=== PATIENT | female | born 1930 | race Caucasian/White ===

== ENCOUNTER 2017-03-15 15:35 | Emergency (ER) | payer MEDICARE, OTHER ==
[~2017-03-15] VITALS: Ht 170.2 cm; Wt 70.0 kg
[~2017-03-15 15:35] MED LIST: ALPR.25 PO; COZA25TA PO; GABA100C4 PO; OXYB5TAB PO; RANI150 PO; ST JTAB PO; TRAM50TA PO
[2017-03-15 15:45] VITALS: BP 167/79; PULSE 74; RESP 18; RESP 20; TEMP 97.5; O2SAT 98
[2017-03-15] MEDS ORDERED: MECL-62 PO (15:59)
--- NOTE | 2017-03-15 15:59 | PD ---
HPI . Vertigo Chief Complaint: Dizziness Time Seen by Provider: 15:42 Travel History International Travel<30 days: No Contact w/Intl Traveler<30days: No Traveled to known affect area: No History of Present Illness HPI Patient presents with the acute onset of vertigo. He is treated en route by EMS with Zofran and states that she is better and ready to go home. She denies headache. She states that her vision is chronically poor. She initially states that she is no longer nauseous and like to have some water. 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 She states her last episode of vertigo was 3 days ago but was not as severe as today. She states that she had 3 episodes of emesis associated with the vertigo prior to her presentation. Symptoms were exacerbated by head movement and by bumps in the road and turns in the ambulance. Symptoms have been resolved with Zofran. PFSH Past Medical History Asthma: No Heart Rhythm Problems: No Cancer: No Cardiac Catheterization: No Cardiovascular Problems: Yes (HTN) High Cholesterol: No Chest Pain: No Congestive Heart Failure: No COPD: No Cerebrovascular Accident: Yes (MINI TIAs) Diabetes: No Diminished Hearing: No Endocrine: No Genitourinary: Yes (UTI) Hypertension: Yes Implanted Vascular Access Dvce: No Musculoskeletal: Yes Neurologic: Yes Psychiatric: No Reproductive: No Respiratory: No Integumentary: Yes (RECENT SHINGLES, RIGHT BREAST) Immunizations Current: No Migraines: No Myocardial Infarction: No Seizures: No Tetanus Vaccination: Unknown Influenza Vaccination: Yes ?: Not Past Surgical History Abdominal Surgery: Yes (APPY) Appendectomy: Yes Cardiac Surgery: No Coronary Artery Bypass Graft: No Eye Surgery: Yes (5 SURGERIES IN THE PAST, DETACHED RETINA & MACULAR DEGENERATION) Genitourinary Surgery: No Gynecologic Surgery: Yes (HYSTERECTOMY) Hysterectomy: Yes Neurologic Surgery: Yes (LOWER BACK SURGERIES ) Thoracic Surgery: No Other Surgery: Yes (RIGHT SIDE LUMPECTOMY) Family History Family Myocardial Infarction: Yes (brother mi age ) Social History Alcohol Use: No Tobacco Use: No Substance Use: No Allergies-Medications (Allergen,Severity, Reaction): Coded Allergies: Morphine (Verified Allergy, Severe, Anaphylaxis, 09/09/16) Rocephin (Verified Allergy, Intermediate, Flushing, Hypotensive, 09/09/16) Codeine (Verified Allergy, Mild, RXN= ANAPHYLAXIS, THROAT CLOSURE, 09/09/16 ) 12/21/06: PER PT,CODEINE RXN = ANAPHYLAXIS, THROAT CLOSURE Iodine (Verified Allergy, Mild, 09/09/16) Penicillin (Verified Allergy, Mild, 09/09/16) Sulfa (Verified Allergy, Mild, 09/09/16) Ceftriaxone (Verified Adverse Reaction, Severe, FLUSHING, HYPOTENSION, 09/09/16) Levaquin (Verified Adverse Reaction, Severe, tendonitis, 09/09/16) Reported Meds & Prescriptions Reported Meds & Active Scripts Active Meclizine (Meclizine HCl) 25 Mg Tab 25 Mg PO TID PRN Tramadol (Tramadol HCl) 50 Mg Tab 50 Mg PO BID PRN Cozaar (Losartan Potassium) 25 Mg Tab 25 Mg PO DAILY Reported Zantac (Ranitidine HCl) 150 Mg Tab 150 Mg PO BID Aspirin Adult Low Strength (Aspirin) 81 Mg Tabdr 81 Mg PO DAILY Ditropan (Oxybutynin Chloride) 5 Mg Tab 5 Mg PO BID PRN Review of Systems Except as stated in HPI: all other systems reviewed are Neg General / Constitutional: No: Fever, Chills Eyes: Positive: Other, No: Visual changes HENT: Positive: Vertigo, No: Headaches Cardiovascular: No: Chest Pain or Discomfort Respiratory: No: Shortness of Breath Gastrointestinal: Positive: Nausea, Vomiting, No: Abdominal Pain Physical Exam Narrative GENERAL: Patient presents with an emesis bag around her neck. She has fresh emesis in her hair. SKIN: Warm and dry. HEAD: Atraumatic. Normocephalic. EYES: Pupils equal and round. Extraocular movements were intact. ENT: No nasal bleeding or discharge. Mucous membranes pink and moist. NECK: Trachea midline. Neck supple. CARDIOVASCULAR: Regular rate and rhythm. Heart sounds normal. RESPIRATORY: No accessory muscle use. Lungs clear. GASTROINTESTINAL: Abdomen soft, non-tender, nondistended. MUSCULOSKELETAL: No obvious deformities. No edema. NEUROLOGICAL: Awake and alert. No obvious cranial nerve deficits. Motor grossly within normal limits. Normal speech. PSYCHIATRIC: Appropriate mood and affect; insight and judgment normal. Data Data Last Documented VS Vital Signs Date Time Temp Pulse Resp B/P Pulse Ox O2 Delivery O2 Flow Rate FiO2 03/15/17 15:57 Room Air 03/15/17 15:45 97.5 74 18 167/79 98 Orders Lorazepam Inj (Ativan Inj) (03/15/17 16:00) Prochlorperazine Inj (Compazine Inj) (03/15/17 16:00) Diphenhydramine Inj (Benadryl Inj) (03/15/17 16:00) Electrocardiogram (03/15/17 15:51) MDM Medical Decision Making Medical Screen Exam Complete: Yes Emergency Medical Condition: Yes Interpretation(s) EKG shows sinus rhythm with no acute ischemic change. Differential Diagnosis Differential diagnosis of dizziness includes but is not limited to vertigo, dehydration, acute blood loss, sepsis, ACS Narrative Course Patient presents by [facility] with vertigo. She states that she now feels fine and is ready to go home. However, she does have some residual nausea. I will give her a low dose of Compazine and Benadryl and observe her for a period of time. 4:55 PM Patient is asymptomatic. She will be discharged home. Diagnosis Primary Impression: Vertigo Patient Instructions: General Instructions, Vertigo (DC) Med/Other Pt SpecificInfo: Prescription(s) given Scripts Meclizine 25 Mg Tab25 Mg PO TID PRN (VERTIGO) #60 TAB Ref 0 Prov:Emma Ceja MD 03/15/17 Disposition: 01 DISCHARGE HOME Condition: Stable Emma Ceja MD March 15, 2017 15:59
[2017-03-15] MEDS ORDERED: diphenhydrAMINE HCL 50 MG/ML VIAL IV PUSH ONE (16:00)
[2017-03-15] MEDS ORDERED: PROCHLORPERAZINE INJ 10 MG/2 ML VIAL IV PUSH ONE (16:00)
[2017-03-15] MEDS ORDERED: LORazepam 2 MG/ML VIAL IV PUSH ONE (16:00)
[2017-03-15] MEDS ORDERED: ZANT150T2 PO (16:22)
[2017-03-15] MEDS ORDERED: ASPI1TAB91 PO (16:22)
[2017-03-15] MEDS ORDERED: OXYB5TAB10 PO (16:22)
[2017-03-15 17:25] VITALS: BP 167/73
--- NOTE | 2017-03-16 15:22 | EKG ---
Date Performed: 03/15/2017 Time Performed: 15:51:21 PTAGE: 86 years EKG: Sinus rhythm NONSPECIFIC ST CHANGES PRESENT NORMAL ECG PREVIOUS TRACING : 07/08/2011 14.48 Since previous tracing, no significant change noted DOCTOR: Hernando Duffy Interpretating Date/Time 03/16/2017 15:20:23
== END 2017-03-15 17:25 | disposition home or self-care (01) ==
LOC: NEPC 15:35
DX: R42 Dizziness and giddiness (principal); I10 Essential (primary) hypertension; Z86.73 Personal history of transient ischemic attack (TIA), and cerebral infarction without residual deficits
CPT/HCPCS: 93005; 96374; 96375; 99285; J0780; J1200

== ENCOUNTER 2018-11-03 19:00 | Observation (INO) ==
[2018-11-03] MEDS ORDERED: Sod Chloride 0.9% Inj 1,000 ML IV.SIG ONE (19:17)
--- NOTE | 2018-11-03 19:46 | XR ---
EXAM DATE: 11/03/2018 7:39 PM EST AGE/SEX: 88 years / Female INDICATIONS: Chest pain. CLINICAL DATA: This is the patient's initial encounter. Patient reports that signs and symptoms have been present for 3 days and indicates a pain score of 3/10. MEDICAL/SURGICAL HISTORY: . TIA. UTI. Hypertension. Shingles. . Hysterectomy. Lumpectomy. Natalie endectomy. COMPARISON: . FINDINGS: A single AP view of the chest demonstrates the lungs to be symmetrically aerated without evidence of mass, infiltrate or effusion. The cardiomediastinal contours are unremarkable. Osseous structures a re intact. CONCLUSION: No acute cardiopulmonary disease Electronically signed by: Felipe Plascencia MD Board Certified Radiologist 11/03/2018 7:45 PM EST
--- NOTE | 2018-11-03 19:49 | CT ---
EXAM DATE: 11/03/2018 7:43 PM EST AGE/SEX: 88 years / Female INDICATIONS: Syncope CLINICAL DATA: This is the patient's initial encounter. Patient reports that signs and symptoms have been present for 1 day and indicates a pain score of 5/10. MEDICAL/SURGICAL HISTORY: Hypertension. Transient ischemic attack. Appendectomy. Hysterectomy. RADIATION DOSE: 47.20 CTDI (mGy) COMPARISON: [facility], CT BRAIN W/O CONTRAST, 03/01/2015. . TECHNIQUE: CT of the head without contrast. Using automated exposure control and adjustment of the mA and/or kV according to patient size, radiation dose was kept as low as reasonably achievable to ob tain optimal diagnostic quality images. DICOM format image data is available electronically for revi ew and comparison. FINDINGS: Cerebrum: The ventricles are prominent consistent with atrophy. Minimal periventricular low density. No evidence of midline shift, mass lesion, hemorrhage or acute infarction. No extraaxial fluid col lections are seen. Posterior Fossa: The cerebellum and brainstem are intact. The 4th ventricle is midline. The cerebe llopontine angle is unremarkable. Skull: The calvaria is intact. No evidence of skull fracture. CONCLUSION: 1. Cerebral atrophy and chronic ischemic small vessel vasculopathy. 2. No acute intracranial abnormality. . Electronically signed by: Felipe Plascencia MD Board Certified Radiologist 11/03/2018 7:47 PM EST
--- NOTE | 2018-11-03 20:02 | CT ---
EXAM DATE: 11/03/2018 7:53 PM EST AGE/SEX: 88 years / Female INDICATIONS: Weakness right lower abdomen pain CLINICAL DATA: This is the patient's initial encounter. Patient reports that signs and symptoms have been present for 1 day and indicates a pain score of 5/10. MEDICAL/SURGICAL HISTORY: Transient ischemic attack. Hypertension. Hysterectomy. Appendectomy . RADIATION DOSE: 17.34 CTDI (mGy) COMPARISON: No prior exams available for comparison. TECHNIQUE: Multiple contiguous axial images were obtained through the abdomen. Images were obtained using multiple row detector helical technique. Using automated exposure control and adjustment of the mA and/or kV according to patient size, radiation dose was kept as low as reasonably achievable to o btain optimal diagnostic quality images. DICOM format image data is available electronically for rev iew and comparison. FINDINGS: Lower Lungs: The visualized lower lungs are clear. Liver: The liver has a homogeneous density without space-occupying lesion. There is no dilation of th e biliary tree. Spleen: Homogeneous density without enlargement. Pancreas: Indistinctness of the pancreatic head. Kidneys: Normal in size and shape. No evidence of mass or hydronephrosis. Adrenal Glands: Unremarkable. Aorta: Mild atherosclerotic changes without aneurysmal dilation. Bowel/Mesentery: Extensive diverticulosis of the descending and sigmoid colon.. Abdominal Wall: Intact. Retroperitoneum: No evidence of adenopathy in the retrocrural, para-aortic, or deep pelvic regions. Bladder: Contours are smooth. Reproductive Organs: Cystic lesion left adnexa measures 3.1 cm. Uterus is absent. Inguinal: The inguinal region is unremarkable without evidence of adenopathy. Bony Structures: Degenerative changes lumbar spine. Mild loss of height of L1. CONCLUSION: 1. Diverticulosis without diverticulitis. 2. Hysterectomy. 3. 3 cm cystic structure left adnexa likely ovarian in etiology. 4. Indistinctness of the pancreatic head of uncertain etiology but could be related to pancreatitis in the right clinical setting. Correlation with amylase/lipase levels recommended. Electronically signed by: Felipe Plascencia MD Board Certified Radiologist 11/03/2018 8:01 PM EST
[2018-11-03 20:05] LABS: Baso # (Auto) 0.1 th/mm3 (0.0-0.2); Baso % (Auto) 0.6 % (0.0-2.0); Eos # (Auto) 0.3 th/mm3 (0.0-0.4); Eos % (Auto) 2.5 % (0.0-4.0); Hematocrit 39.5 % (35.0-46.0); Hemoglobin 13.1 gm/dL (11.6-15.3); Lymph # (Auto) 1.4 th/mm3 (1.0-4.8); Lymph % (Auto) 12.6 % (9.0-44.0); Mean Corpuscular HGB Conc 33.2 % (32.0-36.0); Mean Corpuscular Hemoglobin 28.7 pg (27.0-34.0); Mean Corpuscular Volume 86.5 fL (80.0-100.0); Mean Platelet Volume 7.5 fL (7.0-11.0); Mono # (Auto) 0.9 th/mm3 (0.0-0.9); Mono % (Auto) 8.3 % (0.0-8.0); Neut # (Auto) 8.6 th/mm3 (1.8-7.7); Platelet Count 262 th/mm3 (150-450); Red Blood Count 4.57 mil/mm3 (4.00-5.30); Red Cell Distribution Width 13.1 % (11.6-17.2); White Blood Count 11.3 th/mm3 (4.0-11.0)
[2018-11-03 20:11] LABS: Alanine Aminotransferase 12 U/L (10-53); Anion Gap 7 meq/L (5-15); Aspartate Aminotransferase 16 U/L (15-37); Blood Urea Nitrogen 26 mg/dL (7-18); Calcium 8.3 mg/dL (8.5-10.1); Carbon Dioxide 26.2 meq/L (21.0-32.0); Chloride 107 meq/L (98-107); Glomerular Filtration Rate 29 mL/min (>89); Glucose,Random 118 mg/dL (74-106); Potassium 4.1 meq/L (3.5-5.1); Sodium 140 meq/L (136-145)
[2018-11-03 20:15] LABS: Alkaline Phosphatase 67 U/L (45-117); Total Protein 6.9 g/dL (6.4-8.2)
[2018-11-03 20:17] LABS: Prothrombin Time 10.1 sec (9.8-11.6)
[2018-11-03 20:22] LABS: Lipase 129 U/L (73-393)
[2018-11-03 20:31] LABS: Creatine Kinase 26 U/L (26-192)
[2018-11-03 21:07] LABS: Amorphous Sediment,Urine Rare /hpf; Bacteria,Urine Many /hpf; Bilirubin,Urine Negative (Negative); Clarity,Urine Hazy (Clear); Color,Urine Yellow (Yellw/Straw); Glucose,Urine (UA) Negative (Negative); Leukocyte Esterase,Urine Trace (Negative); Mucus,Urine Few /lpf (Occasional); Nitrite,Urine Positive (Negative); Squamous Epithelial Cell,Urine 4 /hpf (0-5)
--- NOTE | 2018-11-03 21:22 | ED ---
HPI General Chief complaint: Weakness Stated complaint: WEAKNESS Time Seen by Provider: 11/03/18 19:16 Source: patient and EMS Mode of arrival: EMS Limitations: no limitations History of Present Illness HPI Narrative: Patient is an 88-year-old female presented [facility] via [facility] for evaluation after near syncopal episode. Patient states she gets weak whenever she gets up to use the bedside commode. Per EMS report patient's son was there and states that patient nearly passed out. Patient projectile vomited. Initially fire rescue was called for citizens assist. When they arrived on scene patient was hypotensive. [facility] was then notified and transported patient to the hospital. Patient states that she is felt weak and more tired for the last 2 days however she reports that she has aortic stenosis and she is always weak and has no tolerance for any activity. She does report a decreased appetite. She currently lives at home with her son who is her caregiver. Initially patient presented not remembering events that happened immediately around the syncopal episode. She does present complaining of midsternal chest pain and heaviness. She reports that that started last night, it has been constant, she rates it a 7 out of 10 and its associated with nausea. Symptom onset was sudden, symptoms are moderate. Patient has no other complaints at this time. She does state that she did not want to come because she is tired of dealing with this. MD Complaint: Reports generalized weakness Onset (ago): unknown Duration: constant Location: Reports generalized Severity: moderate Relieving factors: none Exacerbating factors: none Context: Reports history of similar Associated symptoms: Reports loss of appetite, nausea/vomiting and syncope Related Data Home Medications Medication Instructions Recorded Confirmed aspirin [Aspir-81] 81 mg PO DAILY 11/03/18 11/03/18 gabapentin 400 mg PO TID 11/03/18 11/03/18 losartan 50 mg PO DAILY 11/03/18 11/03/18 Allergies Allergy/AdvReac Type Severity Reaction Status Date / Time morphine Allergy Severe Anaphylaxis Unverified 06/17/17 02:28 ceftriaxone Allergy Intermediate Flushing, Unverified 06/17/17 02:28 Hypotensive codeine Allergy Mild RXN= Unverified 06/17/17 02:28 ANAPHYLAXIS, THROAT CLOSURE iodine Allergy Mild Unverified 06/17/17 02:28 penicillin G Allergy Mild Unverified 06/17/17 02:28 potassium iodide Allergy Mild Unverified 06/17/17 02:28 povidone-iodine Allergy Mild Unverified 06/17/17 02:28 sodium iodide Allergy Mild Unverified 06/17/17 02:28 sodium iodide Allergy Mild Unverified 06/17/17 02:28 Sulfa (Sulfonamide Allergy Mild Unverified 06/17/17 02:28 Antibiotics) levofloxacin AdvReac Severe tendonitis Unverified 06/17/17 02:28 Review of Systems ROS: all other systems reviewed are negative [facility] Medical History Medical History H/O: hysterectomy (Acute) Hypertension (Acute) Shingles (Acute) TIA (transient ischemic attack) (Acute) UTI (urinary tract infection) (Acute) Surgical History Surgical History H/O lumpectomy (Acute) Hx of appendectomy (Acute) Social History Social History Substance History: No History of Abuse Second Hand Smoke Exposure: Yes Smoking Status: Never smoker How Often Do You Have a Drink Containing Alcohol: Never Recent Travel in [place] within the Last 8 Weeks: No Recent Out of Country Travel within the Last 8 Weeks: No Immunization History Tetanus Immunization: <5 Years Exam Narrative Exam Narrative: GENERAL: Overweight, well-developed, alert elderly female. Presenting in no acute distress. Patient was covered in vomit. SKIN: Focused skin assessment warm/dry. HEAD: Atraumatic. Normocephalic. EYES: Pupils equal and round. No scleral icterus. No injection or drainage. ENT: No nasal bleeding or discharge. Mucous membranes pink and moist. NECK: Trachea midline. No JVD. CARDIOVASCULAR: Regular rate and rhythm. Systolic murmur appreciated. RESPIRATORY: No accessory muscle use. Clear to auscultation. Breath sounds equal bilaterally. GASTROINTESTINAL: Abdomen soft, tender to palpation in right upper quadrant, nondistended. Hepatic and splenic margins not palpable. Positive bowel sounds, no rebound, no guarding. MUSCULOSKELETAL: No obvious deformities. No clubbing. No cyanosis. No edema. NEUROLOGICAL: Awake and alert. No obvious cranial nerve deficits. Motor grossly within normal limits. Normal speech. PSYCHIATRIC: Appropriate mood and affect; insight and judgment normal. Course Initial Documented Vital Signs Temperature 97.6 F 11/03/18 19:13 Pulse Rate 80 11/03/18 19:13 Respiratory Rate 18 11/03/18 19:13 Blood Pressure 167/66 H 11/03/18 19:13 Pulse Oximetry 96 11/03/18 19:13 Last Documented Vital Signs Temperature 97.6 F 11/03/18 19:13 Pulse Rate 90 11/03/18 22:10 Respiratory Rate 20 11/03/18 22:10 Blood Pressure 165/70 H 11/03/18 22:10 Pulse Oximetry 98 11/03/18 22:10 Medical Decision Making LORE Attestation LORE supervised visit: Yes Attestation: I, Dr. Spencer, have reviewed the advance practice practitioner's documentation and am in agreement, met with the patient face to face, made the diagnosis, and the medical decision making was done by me. See her note for further details. Briefly this is an 88-year-old female who was brought in by ambulance after a syncopal/near syncopal episode. She complains of generalized weakness. She has history of severe aortic stenosis and was advised to have this surgically repaired, however the patient has decided to not have this procedure. On exam she does have a harsh holosystolic murmur. Basic labs show slight renal insufficiency with a creatinine of 1.26. CT head and CT abdomen pelvis were performed and showed no acute abnormalities with several chronic abnormalities that were explained with the patient and the patient's family who are at the bedside. Patient does have a UTI. She is concerned about receiving antibiotics as she has several antibiotic allergies that have caused anaphylaxis in the past. She will be given nitrofurantoin as this is not on her list. Patient has severe generalized weakness, no focal deficits on exam, and I am concerned that this is likely secondary to her UTI as well as her severe . She is a high risk for falling, and will therefore be admitted to the hospital for further treatment and evaluation. MDM Narrative Medical decision making narrative: Patient presented via EMS for evaluation of a near syncopal episode. Patient was complaining of abdominal pain. Patient was downplaying her symptoms because she does not want to be here. Labs and imaging ordered and pending. Will obtain a CT scan of the brain and abdomen and pelvis. CBC with white blood cell count 11.3. Chemistry with a BUN and creatinine slightly elevated at 26/1.65 Urinalysis is consistent with a urinary tract infection. CT scan of the abdomen and pelvis shows diverticulosis without diverticulitis, a likely ovarian cyst, indistinct pancreatic head, patient's lipase is normal. CT scan of the brain shows no acute findings. Chest x-ray with no acute findings. Patient was also seen and evaluated by my attending physician. Pt will be started on Macrobid BID, first dose now. She will be admitted for syncope, UTI, weakness secondary to significant aortic stenosis. Pt and family agreeable to palliative/hospice consult. Admit orders placed after discussing with Dr. Maravilla who accepted admit. Medical Screen Exam Complete: Yes Emergency Medical Condition: Yes Differential Diagnosis Differential Diagnosis: Metabolic abnormality versus cardiac arrhythmia versus UTI versus vasovagal episode versus other Medical Records Medical records reviewed: Yes I reviewed the patient's medical records. Lab Data Lab results reviewed: Yes I reviewed the patient's lab results. Result diagrams: 11/03/18 19:27 11/03/18 19:27 Lab Results 11/03/18 11/03/18 11/03/18 Range/Units 19:27 19:27 19:27 WBC 11.3 H (4.0-11.0) th/mm3 RBC 4.57 (4.00-5.30) mil/mm3 Hgb 13.1 (11.6-15.3) gm/dL Hct 39.5 (35.0-46.0) % MCV 86.5 (80.0-100.0) fL MCH 28.7 (27.0-34.0) pg MCHC 33.2 (32.0-36.0) % RDW 13.1 (11.6-17.2) % Plt Count 262 (150-450) th/mm3 MPV 7.5 (7.0-11.0) fL Neut % (Auto) 76.0 H (16.0-70.0) % Lymph % (Auto) 12.6 (9.0-44.0) % [place] % (Auto) 8.3 H (0.0-8.0) % Eos % (Auto) 2.5 (0.0-4.0) % Baso % (Auto) 0.6 (0.0-2.0) % Neut # (Auto) 8.6 H (1.8-7.7) th/mm3 Lymph # (Auto) 1.4 (1.0-4.8) th/mm3 [place] # (Auto) 0.9 (0.0-0.9) th/mm3 Eos # (Auto) 0.3 (0.0-0.4) th/mm3 Baso # (Auto) 0.1 (0.0-0.2) th/mm3 WBC Differential . Differential Comment Auto diff final PT 10.1 (9.8-11.6) sec INR 1.0 Ratio Sodium 140 (136-145) meq/L Potassium 4.1 (3.5-5.1) meq/L Chloride 107 (98-107) meq/L Carbon Dioxide 26.2 (21.0-32.0) meq/L Anion Gap 7 (5-15) meq/L BUN 26 H (7-18) mg/dL Creatinine 1.65 H (0.50-1.00) mg/dL Estimated GFR 29 L (>89) mL/min Random Glucose 118 H (74-106) mg/dL Lactic Acid (0.4-2.0) mmol/L Calcium 8.3 L (8.5-10.1) mg/dL Magnesium 2.0 (1.5-2.5) mg/dL Total Bilirubin 0.3 (0.2-1.0) mg/dL AST 16 (15-37) U/L ALT 12 (10-53) U/L Alkaline Phosphatase 67 (45-117) U/L Total Creatine Kinase 26 (26-192) U/L Troponin I Less than 0.02 L (0.02-0.05) ng/mL B-Natriuretic Peptide (0-100) pg/mL Total Protein 6.9 (6.4-8.2) g/dL Albumin 3.0 L (3.4-5.0) g/dL Lipase 129 (73-393) U/L Urine Color (Yellw/Straw) Urine Clarity (Clear) Urine pH (5.0-8.5) Ur Specific [place] (1.002-1.035) Urine Protein (Neg-Trace) mg/dL Urine Glucose (UA) (Negative) mg/dL Urine Ketones (Negative) mg/dL Urine Occult Blood (Negative) Urine Nitrate (Negative) Urine Bilirubin (Negative) Urine Urobilinogen (Less than 2) mg/dL Ur Leukocyte Esterase (Negative) Urine RBC (0-3) /hpf Urine WBC (0-5) /hpf Ur Squamous Epith Cells (0-5) /hpf Amorphous Sediment (None) /hpf Urine Bacteria (None) /hpf Urine Mucus (Occasional) /lpf Micro UA Comment Ur Microscopic Review Urine Culture Comments 11/03/18 11/03/18 11/03/18 Range/Units 19:27 19:27 19:27 WBC (4.0-11.0) th/mm3 RBC (4.00-5.30) mil/mm3 Hgb (11.6-15.3) gm/dL Hct (35.0-46.0) % MCV (80.0-100.0) fL MCH (27.0-34.0) pg MCHC (32.0-36.0) % RDW (11.6-17.2) % Plt Count (150-450) th/mm3 MPV (7.0-11.0) fL Neut % (Auto) (16.0-70.0) % Lymph % (Auto) (9.0-44.0) % [place] % (Auto) (0.0-8.0) % Eos % (Auto) (0.0-4.0) % Baso % (Auto) (0.0-2.0) % Neut # (Auto) (1.8-7.7) th/mm3 Lymph # (Auto) (1.0-4.8) th/mm3 [place] # (Auto) (0.0-0.9) th/mm3 Eos # (Auto) (0.0-0.4) th/mm3 Baso # (Auto) (0.0-0.2) th/mm3 WBC Differential Differential Comment PT (9.8-11.6) sec INR Ratio Sodium (136-145) meq/L Potassium (3.5-5.1) meq/L Chloride (98-107) meq/L Carbon Dioxide (21.0-32.0) meq/L Anion Gap (5-15) meq/L BUN (7-18) mg/dL Creatinine (0.50-1.00) mg/dL Estimated GFR (>89) mL/min Random Glucose (74-106) mg/dL Lactic Acid 1.2 (0.4-2.0) mmol/L Calcium (8.5-10.1) mg/dL Magnesium (1.5-2.5) mg/dL Total Bilirubin (0.2-1.0) mg/dL AST (15-37) U/L ALT (10-53) U/L Alkaline Phosphatase (45-117) U/L Total Creatine Kinase (26-192) U/L Troponin I (0.02-0.05) ng/mL B-Natriuretic Peptide 21 (0-100) pg/mL Total Protein (6.4-8.2) g/dL Albumin (3.4-5.0) g/dL Lipase Cancelled (73-393) U/L Urine Color (Yellw/Straw) Urine Clarity (Clear) Urine pH (5.0-8.5) Ur Specific [place] (1.002-1.035) Urine Protein (Neg-Trace) mg/dL Urine Glucose (UA) (Negative) mg/dL Urine Ketones (Negative) mg/dL Urine Occult Blood (Negative) Urine Nitrate (Negative) Urine Bilirubin (Negative) Urine Urobilinogen (Less than 2) mg/dL Ur Leukocyte Esterase (Negative) Urine RBC (0-3) /hpf Urine WBC (0-5) /hpf Ur Squamous Epith Cells (0-5) /hpf Amorphous Sediment (None) /hpf Urine Bacteria (None) /hpf Urine Mucus (Occasional) /lpf Micro UA Comment Ur Microscopic Review Urine Culture Comments 11/03/18 Range/Units 20:45 WBC (4.0-11.0) th/mm3 RBC (4.00-5.30) mil/mm3 Hgb (11.6-15.3) gm/dL Hct (35.0-46.0) % MCV (80.0-100.0) fL MCH (27.0-34.0) pg MCHC (32.0-36.0) % RDW (11.6-17.2) % Plt Count (150-450) th/mm3 MPV (7.0-11.0) fL Neut % (Auto) (16.0-70.0) % Lymph % (Auto) (9.0-44.0) % [place] % (Auto) (0.0-8.0) % Eos % (Auto) (0.0-4.0) % Baso % (Auto) (0.0-2.0) % Neut # (Auto) (1.8-7.7) th/mm3 Lymph # (Auto) (1.0-4.8) th/mm3 [place] # (Auto) (0.0-0.9) th/mm3 Eos # (Auto) (0.0-0.4) th/mm3 Baso # (Auto) (0.0-0.2) th/mm3 WBC Differential Differential Comment PT (9.8-11.6) sec INR Ratio Sodium (136-145) meq/L Potassium (3.5-5.1) meq/L Chloride (98-107) meq/L Carbon Dioxide (21.0-32.0) meq/L Anion Gap (5-15) meq/L BUN (7-18) mg/dL Creatinine (0.50-1.00) mg/dL Estimated GFR (>89) mL/min Random Glucose (74-106) mg/dL Lactic Acid (0.4-2.0) mmol/L Calcium (8.5-10.1) mg/dL Magnesium (1.5-2.5) mg/dL Total Bilirubin (0.2-1.0) mg/dL AST (15-37) U/L ALT (10-53) U/L Alkaline Phosphatase (45-117) U/L Total Creatine Kinase (26-192) U/L Troponin I (0.02-0.05) ng/mL B-Natriuretic Peptide (0-100) pg/mL Total Protein (6.4-8.2) g/dL Albumin (3.4-5.0) g/dL Lipase (73-393) U/L Urine Color Yellow (Yellw/Straw) Urine Clarity Hazy H (Clear) Urine pH 6.0 (5.0-8.5) Ur Specific [place] 1.010 (1.002-1.035) Urine Protein Negative (Neg-Trace) mg/dL Urine Glucose (UA) Negative (Negative) mg/dL Urine Ketones Trace H (Negative) mg/dL Urine Occult Blood Small H (Negative) Urine Nitrate Positive H (Negative) Urine Bilirubin Negative (Negative) Urine Urobilinogen Less than 2 (Less than 2) mg/dL Ur Leukocyte Esterase Trace H (Negative) Urine RBC 1 (0-3) /hpf Urine WBC 5 (0-5) /hpf Ur Squamous Epith Cells 4 (0-5) /hpf Amorphous Sediment Rare H (None) /hpf Urine Bacteria Many H (None) /hpf Urine Mucus Few H (Occasional) /lpf Micro UA Comment Cath-culture ind Ur Microscopic Review Not Reportable Urine Culture Comments Cath-cult indicated Imaging Data Radiologist's impression: Chest X-Ray 11/03/18 19:17 CONCLUSION: No acute cardiopulmonary disease Head CT 11/03/18 19:17 CONCLUSION: 1. Cerebral atrophy and chronic ischemic small vessel vasculopathy. 2. No acute intracranial abnormality. . Abdomen/Pelvis CT 11/03/18 19:20 CONCLUSION: 1. Diverticulosis without diverticulitis. 2. Hysterectomy. 3. 3 cm cystic structure left adnexa likely ovarian in etiology. 4. Indistinctness of the pancreatic head of uncertain etiology but could be related to pancreatitis in the right clinical setting. Correlation with amylase/ lipase levels recommended. Discharge Plan Discharge Disposition Patient Disposition: ED Admit(ED Internal Use Only) Discharge Condition Condition: Stable Discharge Order Discharge Orders: ED Use Only Admit Order (Routine); Ordered 11/03/18 Ordered By: Fani Hyatt Discharge Details Diagnosis: Aortic stenosis, Acute UTI, Weakness, Syncope Physicians Team ED Provider: All Spencer ED Midlevel Provider: Fani Hyatt Primary Care Provider: Mauricio Leung Attending Provider: Delmi Maravilla Status ED Status: Admitted Observation Patient
[2018-11-03] MEDS ORDERED: Nitrofurantoin Monohydrate-Macrocrystal 100 MG Capsule PO ONE (21:37)
[2018-11-03] MEDS ORDERED: Enoxaparin Inj 40 MG/0.4 ML Syringe SQ SCH (22:40)
[2018-11-04 05:51] LABS: Baso % (Auto) 0.3 % (0.0-2.0); Eos # (Auto) 0.1 th/mm3 (0.0-0.4); Eos % (Auto) 1.5 % (0.0-4.0); Hemoglobin 12.4 gm/dL (11.6-15.3); Lymph # (Auto) 1.4 th/mm3 (1.0-4.8); Lymph % (Auto) 14.3 % (9.0-44.0); Mean Corpuscular HGB Conc 33.6 % (32.0-36.0); Mean Corpuscular Hemoglobin 29.2 pg (27.0-34.0); Mean Corpuscular Volume 87.1 fL (80.0-100.0); Mean Platelet Volume 7.5 fL (7.0-11.0); Mono % (Auto) 10.7 % (0.0-8.0); Neut % (Auto) 73.2 % (16.0-70.0); Platelet Count 246 th/mm3 (150-450); Red Blood Count 4.25 mil/mm3 (4.00-5.30); Red Cell Distribution Width 12.8 % (11.6-17.2); White Blood Count 9.6 th/mm3 (4.0-11.0)
[2018-11-04 06:14] LABS: Calcium 8.2 mg/dL (8.5-10.1); Carbon Dioxide 23.4 meq/L (21.0-32.0); Potassium 4.3 meq/L (3.5-5.1)
--- NOTE | 2018-11-04 07:31 | ED ---
HPI General Chief complaint: Weakness Stated complaint: WEAKNESS Time Seen by Provider: 11/03/18 19:16 Source: patient and EMS Mode of arrival: EMS History of Present Illness HPI narrative: History from patient, ER physician communication, and review of medical records. Patient reported that today she got up from her bed to the wheelchair and went to her bedside commode. While she was doing that, she got quite dizzy, weak and passed out. She therefore called for her son. She states that these episodes happen to her quite often and usually she would just lie down after this and about 20 minutes later the episodes would go away. However this time her family got quite scared and called 911. She states she really does not want to come to hospital but the family pushed her. Patient reports she has history of aortic stenosis. However she has never seen a cardiothoracic surgeon for evaluation. She reports she was seeing a automation/controls manager up until a year ago. Her automation/controls manager thought that she is high risk for surgery. Patient herself is also scared that she might be put to sleep for the procedure and she might react badly to the medications because she has allergies to several medications. She is also under the impression that the surgery is more of an open heart surgery rather than minimally invasive. She reports of increasing cough and shortness of breath in the past year. She states that her murmur is so loud that she herself could hear it. She states together with his shortness of breath she also gets chest heaviness and tightness. However she states she knows that this is not a heart attack because there was no radiation. She states this is coming from her valve problem. Patient states she also had projectile vomiting whenever she gets dizzy and almost passed out. Apart from the above, patient also complains of flank pain on the right side for the past 3 weeks. She was worried to mention this because she did not want to check out whether she has kidney stones or not. Patient is on losartan 25 mg p.o. daily. She states that her blood pressure is usually low whenever she sits up. Therefore even though her automation/controls manager prescribed her losartan 50 mg, she took only half the dose. Apart from the above, patient denies any fevers/diarrhea/urinary burning or pain on urination. Reports that she is incontinent with urine and for the past 1 year she is mostly wheelchair-bound. She usually was able to walk and independent of ADLs about a year ago. She states because of this heart valve issue, she just cannot get up and do anything or else she will get these episodes of dizziness, syncope, for projectile vomiting. Patient is also worried that she might have early stages of decubiti because she is having pain in her buttocks. She is worried because she has been in bed mostly. Review of system: Complete review of systems performed and is negative apart from what is mentioned in HPI Past medical history: Macular degeneration Retinal detachment Right eye blindness Severe aortic stenosis History of TIA History of hypertension. However possible she also has orthostatic hypotension from history. 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 No drinking alcohol or drug abuse. 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 Family history: Her father had tuberculosis. Mother had breast cancer. Mother also had some heart issues and had a pacemaker. But she at 92 years old. Related Data Home Medications Medication Instructions Recorded Confirmed aspirin [Aspir-81] 81 mg PO DAILY 11/03/18 11/03/18 gabapentin 400 mg PO TID 11/03/18 11/03/18 losartan 50 mg PO DAILY 11/03/18 11/03/18 Allergies Allergy/AdvReac Type Severity Reaction Status Date / Time morphine Allergy Severe Anaphylaxis Unverified 06/17/17 02:28 ceftriaxone Allergy Intermediate Flushing, Unverified 06/17/17 02:28 Hypotensive codeine Allergy Mild RXN= Unverified 06/17/17 02:28 ANAPHYLAXIS, THROAT CLOSURE iodine Allergy Mild Unverified 06/17/17 02:28 penicillin G Allergy Mild Unverified 06/17/17 02:28 potassium iodide Allergy Mild Unverified 06/17/17 02:28 povidone-iodine Allergy Mild Unverified 06/17/17 02:28 sodium iodide Allergy Mild Unverified 06/17/17 02:28 sodium iodide Allergy Mild Unverified 06/17/17 02:28 Sulfa (Sulfonamide Allergy Mild Unverified 06/17/17 02:28 Antibiotics) levofloxacin AdvReac Severe tendonitis Unverified 06/17/17 02:28 [facility] Medical History Medical History H/O: hysterectomy (Acute) Hypertension (Acute) Shingles (Acute) TIA (transient ischemic attack) (Acute) UTI (urinary tract infection) (Acute) Surgical History Surgical History H/O lumpectomy (Acute) Hx of appendectomy (Acute) Social History Social History Substance History: No History of Abuse Second Hand Smoke Exposure: No Smoking Status: Never smoker How Often Do You Have a Drink Containing Alcohol: Never Recent Travel in [facility] within the Last 8 Weeks: No Recent Out of Country Travel within the Last 8 Weeks: No Immunization History Tetanus Immunization: <5 Years Course Initial Documented Vital Signs Temperature 97.6 F 11/03/18 19:13 Pulse Rate 80 11/03/18 19:13 Respiratory Rate 18 11/03/18 19:13 Blood Pressure 167/66 H 11/03/18 19:13 Pulse Oximetry 96 11/03/18 19:13 Last Documented Vital Signs Temperature 97.9 F 11/04/18 04:00 Pulse Rate 82 11/04/18 04:00 Respiratory Rate 16 11/04/18 04:00 Blood Pressure 182/78 H 11/04/18 04:00 Pulse Oximetry 97 11/04/18 04:00 Medical Decision Making Lab Data Result diagrams: 11/04/18 04:29 11/04/18 04:29 Lab Results 11/03/18 11/03/18 11/03/18 Range/Units 19:27 19:27 19:27 WBC 11.3 H (4.0-11.0) th/mm3 RBC 4.57 (4.00-5.30) mil/mm3 Hgb 13.1 (11.6-15.3) gm/dL Hct 39.5 (35.0-46.0) % MCV 86.5 (80.0-100.0) fL MCH 28.7 (27.0-34.0) pg MCHC 33.2 (32.0-36.0) % RDW 13.1 (11.6-17.2) % Plt Count 262 (150-450) th/mm3 MPV 7.5 (7.0-11.0) fL Neut % (Auto) 76.0 H (16.0-70.0) % Lymph % (Auto) 12.6 (9.0-44.0) % Harris % (Auto) 8.3 H (0.0-8.0) % Eos % (Auto) 2.5 (0.0-4.0) % Baso % (Auto) 0.6 (0.0-2.0) % Neut # (Auto) 8.6 H (1.8-7.7) th/mm3 Lymph # (Auto) 1.4 (1.0-4.8) th/mm3 Harris # (Auto) 0.9 (0.0-0.9) th/mm3 Eos # (Auto) 0.3 (0.0-0.4) th/mm3 Baso # (Auto) 0.1 (0.0-0.2) th/mm3 WBC Differential . Differential Comment Auto diff final PT 10.1 (9.8-11.6) sec INR 1.0 Ratio Sodium 140 (136-145) meq/L Potassium 4.1 (3.5-5.1) meq/L Chloride 107 (98-107) meq/L Carbon Dioxide 26.2 (21.0-32.0) meq/L Anion Gap 7 (5-15) meq/L BUN 26 H (7-18) mg/dL Creatinine 1.65 H (0.50-1.00) mg/dL Estimated GFR 29 L (>89) mL/min Random Glucose 118 H (74-106) mg/dL Lactic Acid (0.4-2.0) mmol/L Calcium 8.3 L (8.5-10.1) mg/dL Magnesium 2.0 (1.5-2.5) mg/dL Total Bilirubin 0.3 (0.2-1.0) mg/dL AST 16 (15-37) U/L ALT 12 (10-53) U/L Alkaline Phosphatase 67 (45-117) U/L Total Creatine Kinase 26 (26-192) U/L Troponin I Less than 0.02 L (0.02-0.05) ng/mL B-Natriuretic Peptide (0-100) pg/mL Total Protein 6.9 (6.4-8.2) g/dL Albumin 3.0 L (3.4-5.0) g/dL Lipase 129 (73-393) U/L Urine Color (Yellw/Straw) Urine Clarity (Clear) Urine pH (5.0-8.5) Ur Specific Jasper (1.002-1.035) Urine Protein (Neg-Trace) mg/dL Urine Glucose (UA) (Negative) mg/dL Urine Ketones (Negative) mg/dL Urine Occult Blood (Negative) Urine Nitrate (Negative) Urine Bilirubin (Negative) Urine Urobilinogen (Less than 2) mg/dL Ur Leukocyte Esterase (Negative) Urine RBC (0-3) /hpf Urine WBC (0-5) /hpf Ur Squamous Epith Cells (0-5) /hpf Amorphous Sediment (None) /hpf Urine Bacteria (None) /hpf Urine Mucus (Occasional) /lpf Micro UA Comment Ur Microscopic Review Urine Culture Comments 11/03/18 11/03/18 11/03/18 Range/Units 19:27 19:27 19:27 WBC (4.0-11.0) th/mm3 RBC (4.00-5.30) mil/mm3 Hgb (11.6-15.3) gm/dL Hct (35.0-46.0) % MCV (80.0-100.0) fL MCH (27.0-34.0) pg MCHC (32.0-36.0) % RDW (11.6-17.2) % Plt Count (150-450) th/mm3 MPV (7.0-11.0) fL Neut % (Auto) (16.0-70.0) % Lymph % (Auto) (9.0-44.0) % Harris % (Auto) (0.0-8.0) % Eos % (Auto) (0.0-4.0) % Baso % (Auto) (0.0-2.0) % Neut # (Auto) (1.8-7.7) th/mm3 Lymph # (Auto) (1.0-4.8) th/mm3 Harris # (Auto) (0.0-0.9) th/mm3 Eos # (Auto) (0.0-0.4) th/mm3 Baso # (Auto) (0.0-0.2) th/mm3 WBC Differential Differential Comment PT (9.8-11.6) sec INR Ratio Sodium (136-145) meq/L Potassium (3.5-5.1) meq/L Chloride (98-107) meq/L Carbon Dioxide (21.0-32.0) meq/L Anion Gap (5-15) meq/L BUN (7-18) mg/dL Creatinine (0.50-1.00) mg/dL Estimated GFR (>89) mL/min Random Glucose (74-106) mg/dL Lactic Acid 1.2 (0.4-2.0) mmol/L Calcium (8.5-10.1) mg/dL Magnesium (1.5-2.5) mg/dL Total Bilirubin (0.2-1.0) mg/dL AST (15-37) U/L ALT (10-53) U/L Alkaline Phosphatase (45-117) U/L Total Creatine Kinase (26-192) U/L Troponin I (0.02-0.05) ng/mL B-Natriuretic Peptide 21 (0-100) pg/mL Total Protein (6.4-8.2) g/dL Albumin (3.4-5.0) g/dL Lipase Cancelled (73-393) U/L Urine Color (Yellw/Straw) Urine Clarity (Clear) Urine pH (5.0-8.5) Ur Specific Jasper (1.002-1.035) Urine Protein (Neg-Trace) mg/dL Urine Glucose (UA) (Negative) mg/dL Urine Ketones (Negative) mg/dL Urine Occult Blood (Negative) Urine Nitrate (Negative) Urine Bilirubin (Negative) Urine Urobilinogen (Less than 2) mg/dL Ur Leukocyte Esterase (Negative) Urine RBC (0-3) /hpf Urine WBC (0-5) /hpf Ur Squamous Epith Cells (0-5) /hpf Amorphous Sediment (None) /hpf Urine Bacteria (None) /hpf Urine Mucus (Occasional) /lpf Micro UA Comment Ur Microscopic Review Urine Culture Comments 11/03/18 11/04/18 11/04/18 Range/Units 20:45 04:29 04:29 WBC 9.6 (4.0-11.0) th/mm3 RBC 4.25 (4.00-5.30) mil/mm3 Hgb 12.4 (11.6-15.3) gm/dL Hct 37.0 (35.0-46.0) % MCV 87.1 (80.0-100.0) fL MCH 29.2 (27.0-34.0) pg MCHC 33.6 (32.0-36.0) % RDW 12.8 (11.6-17.2) % Plt Count 246 (150-450) th/mm3 MPV 7.5 (7.0-11.0) fL Neut % (Auto) 73.2 H (16.0-70.0) % Lymph % (Auto) 14.3 (9.0-44.0) % Harris % (Auto) 10.7 H (0.0-8.0) % Eos % (Auto) 1.5 (0.0-4.0) % Baso % (Auto) 0.3 (0.0-2.0) % Neut # (Auto) 7.0 (1.8-7.7) th/mm3 Lymph # (Auto) 1.4 (1.0-4.8) th/mm3 Harris # (Auto) 1.0 H (0.0-0.9) th/mm3 Eos # (Auto) 0.1 (0.0-0.4) th/mm3 Baso # (Auto) 0.0 (0.0-0.2) th/mm3 WBC Differential . Differential Comment Auto diff final PT (9.8-11.6) sec INR Ratio Sodium 140 (136-145) meq/L Potassium 4.3 (3.5-5.1) meq/L Chloride 107 (98-107) meq/L Carbon Dioxide 23.4 (21.0-32.0) meq/L Anion Gap 10 (5-15) meq/L BUN 25 H (7-18) mg/dL Creatinine 1.63 H (0.50-1.00) mg/dL Estimated GFR 30 L (>89) mL/min Random Glucose 98 (74-106) mg/dL Lactic Acid (0.4-2.0) mmol/L Calcium 8.2 L (8.5-10.1) mg/dL Magnesium (1.5-2.5) mg/dL Total Bilirubin (0.2-1.0) mg/dL AST (15-37) U/L ALT (10-53) U/L Alkaline Phosphatase (45-117) U/L Total Creatine Kinase (26-192) U/L Troponin I (0.02-0.05) ng/mL B-Natriuretic Peptide (0-100) pg/mL Total Protein (6.4-8.2) g/dL Albumin (3.4-5.0) g/dL Lipase (73-393) U/L Urine Color Yellow (Yellw/Straw) Urine Clarity Hazy H (Clear) Urine pH 6.0 (5.0-8.5) Ur Specific Jasper 1.010 (1.002-1.035) Urine Protein Negative (Neg-Trace) mg/dL Urine Glucose (UA) Negative (Negative) mg/dL Urine Ketones Trace H (Negative) mg/dL Urine Occult Blood Small H (Negative) Urine Nitrate Positive H (Negative) Urine Bilirubin Negative (Negative) Urine Urobilinogen Less than 2 (Less than 2) mg/dL Ur Leukocyte Esterase Trace H (Negative) Urine RBC 1 (0-3) /hpf Urine WBC 5 (0-5) /hpf Ur Squamous Epith Cells 4 (0-5) /hpf Amorphous Sediment Rare H (None) /hpf Urine Bacteria Many H (None) /hpf Urine Mucus Few H (Occasional) /lpf Micro UA Comment Cath-culture ind Ur Microscopic Review Not Reportable Urine Culture Comments Cath-cult indicated Imaging Data Radiologist's impression: Chest X-Ray 11/03/18 19:17 CONCLUSION: No acute cardiopulmonary disease Head CT 11/03/18 19:17 CONCLUSION: 1. Cerebral atrophy and chronic ischemic small vessel vasculopathy. 2. No acute intracranial abnormality. . Abdomen/Pelvis CT 11/03/18 19:20 CONCLUSION: 1. Diverticulosis without diverticulitis. 2. Hysterectomy. 3. 3 cm cystic structure left adnexa likely ovarian in etiology. 4. Indistinctness of the pancreatic head of uncertain etiology but could be related to pancreatitis in the right clinical setting. Correlation with amylase/ lipase levels recommended. Discharge Plan Discharge Disposition Patient Disposition: ED Admit(ED Internal Use Only) Discharge Condition Condition: Stable Discharge Order Discharge Orders: ED Use Only Admit Order (Routine); Ordered 11/03/18 Ordered By: Fani Hyatt Discharge Details Diagnosis: Aortic stenosis, Acute UTI, Weakness, Syncope Physicians Team ED Provider: [facility] Midlevel Provider: Fani Hyatt Primary Care Provider: Mauricio Leung Attending Provider: Kelli Burch Other Providers: Bonny Miner Status ED Status: Left Department Discharge Information Discharge Date/Time: 11/04/18 01:19
--- NOTE | 2018-11-04 07:33 | P.HPIM ---
History of Present Illness Primary Care Physician: History from patient, ER physician communication, and review of medical records. Patient reported that today she got up from her bed to the wheelchair and went to her bedside commode. While she was doing that, she got quite dizzy, weak and passed out. She therefore called for her son. She states that these episodes happen to her quite often and usually she would just lie down after this and about 20 minutes later the episodes would go away. However this time her family got quite scared and called 911. She states she really does not want to come to hospital but the family pushed her. Patient reports she has history of aortic stenosis. However she has never seen a cardiothoracic surgeon for evaluation. She reports she was seeing a warhead maintenance specialist up until a year ago. Her warhead maintenance specialist thought that she is high risk for surgery. Patient herself is also scared that she might be put to sleep for the procedure and she might react badly to the medications because she has allergies to several medications. She is also under the impression that the surgery is more of an open heart surgery rather than minimally invasive. She reports of increasing cough and shortness of breath in the past year. She states that her murmur is so loud that she herself could hear it. She states together with his shortness of breath she also gets chest heaviness and tightness. However she states she knows that this is not a heart attack because there was no radiation. She states this is coming from her valve problem. Patient states she also had projectile vomiting whenever she gets dizzy and almost passed out. Apart from the above, patient also complains of flank pain on the right side for the past 3 weeks. She was worried to mention this because she did not want to check out whether she has kidney stones or not. Patient is on losartan 25 mg p.o. daily. She states that her blood pressure is usually low whenever she sits up. Therefore even though her warhead maintenance specialist prescribed her losartan 50 mg, she took only half the dose. Apart from the above, patient denies any fevers/diarrhea/urinary burning or pain on urination. Reports that she is incontinent with urine and for the past 1 year she is mostly wheelchair-bound. She usually was able to walk and independent of ADLs about a year ago. She states because of this heart valve issue, she just cannot get up and do anything or else she will get these episodes of dizziness, syncope, for projectile vomiting. Patient is also worried that she might have early stages of decubiti because she is having pain in her buttocks. She is worried because she has been in bed mostly. Review of system: Complete review of systems performed and is negative apart from what is mentioned in HPI Past medical history: Macular degeneration Retinal detachment Right eye blindness Severe aortic stenosis History of TIA History of hypertension. However possible she also has orthostatic hypotension from history. 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 No drinking alcohol or drug abuse. 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 Family history: Her father had tuberculosis. Mother had breast cancer. Mother also had some heart issues and had a pacemaker. But she at 92 years old. Review of Systems Review of Systems: all other systems reviewed are negative [facility] Medical History Medical History H/O: hysterectomy (Acute) Hypertension (Acute) Shingles (Acute) TIA (transient ischemic attack) (Acute) UTI (urinary tract infection) (Acute) Surgical History Surgical History H/O lumpectomy (Acute) Hx of appendectomy (Acute) Social History Social History Substance History: No History of Abuse Second Hand Smoke Exposure: No Smoking Status: Never smoker How Often Do You Have a Drink Containing Alcohol: Never Recent Travel in [facility] within the Last 8 Weeks: No Recent Out of Country Travel within the Last 8 Weeks: No Immunization History Tetanus Immunization: <5 Years Medications and Allergies Allergies Allergy/AdvReac Type Severity Reaction Status Date / Time morphine Allergy Severe Anaphylaxis Unverified 06/17/17 02:28 ceftriaxone Allergy Intermediate Flushing, Unverified 06/17/17 02:28 Hypotensive codeine Allergy Mild RXN= Unverified 06/17/17 02:28 ANAPHYLAXIS, THROAT CLOSURE iodine Allergy Mild Unverified 06/17/17 02:28 penicillin G Allergy Mild Unverified 06/17/17 02:28 potassium iodide Allergy Mild Unverified 06/17/17 02:28 povidone-iodine Allergy Mild Unverified 06/17/17 02:28 sodium iodide Allergy Mild Unverified 06/17/17 02:28 sodium iodide Allergy Mild Unverified 06/17/17 02:28 Sulfa (Sulfonamide Allergy Mild Unverified 06/17/17 02:28 Antibiotics) levofloxacin AdvReac Severe tendonitis Unverified 06/17/17 02:28 Home Medications Medication Instructions Recorded Confirmed Type aspirin [Aspir-81] 81 mg PO DAILY 11/03/18 11/03/18 History gabapentin 400 mg PO TID 11/03/18 11/03/18 History losartan 50 mg PO DAILY 11/03/18 11/03/18 History Active Medications: Active Medications Aspirin (Ecotrin) 81 mg PO DAILY MORGAN Enoxaparin Sodium (Lovenox Inj) 40 mg SQ Q24H MORGAN Last Admin: 11/03/18 22:44 Dose: 40 mg Gabapentin (Neurontin) 400 mg PO TID MORGAN Nitrofurantoin Macrocrystals (Macrobid) 100 mg PO BIDPC MORGAN Sennosides (Senokot) 17.2 mg PO Q12H PRN PRN Reason: Moderate Constipation Sodium Chloride (Ns Flush) 2 ml IV.FLUSH PRN PRN PRN Reason: FLUSH AFTER USING IV ACCESS Sodium Chloride (Ns Flush) 2 ml IV.FLUSH BID MORGAN Sodium Chloride (Ns Flush) 2 ml IV.FLUSH PRN PRN PRN Reason: FLUSH AFTER USING IV ACCESS Physical Exam Vital signs: Last Vital Signs Temp 97.9 F 11/04/18 04:00 Pulse 82 11/04/18 04:00 Resp 16 11/04/18 04:00 BP 182/78 H 11/04/18 04:00 Pulse Ox 97 11/04/18 04:00 Intake & Output 11/02/18 11/03/18 11/04/18 11/05/18 06:59 06:59 06:59 06:59 Intake Total 1000 / 1000 Balance 1000 / 1000 Weight 74.843 kg GENERAL: This is a well-nourished, well-developed patient, in no apparent distress. CARDIOVASCULAR: Regular rate and rhythm without gallops, or rubs. Difficult to appreciate her aortic stenotic murmur. Possible due to severe stenosis. RESPIRATORY: Clear to auscultation. Breath sounds equal bilaterally. No wheezes , rales, or rhonchi. GASTROINTESTINAL: Abdomen soft, non-tender, nondistended. Normal active bowel sounds MUSCULOSKELETAL: Extremities without clubbing, cyanosis, or edema. NEURO: Alert & Oriented x4 to person, place, time, situation. Bilateral lower extremity weakness. Right lower extremity unable to move power about 1 to 2 out of 5. Results Labs CBC & Chem 7: 11/04/18 04:29 11/04/18 04:29 Imaging Impressions Chest X-Ray 11/03/18 19:17 CONCLUSION: No acute cardiopulmonary disease Head CT 11/03/18 19:17 CONCLUSION: 1. Cerebral atrophy and chronic ischemic small vessel vasculopathy. 2. No acute intracranial abnormality. . Abdomen/Pelvis CT 11/03/18 19:20 CONCLUSION: 1. Diverticulosis without diverticulitis. 2. Hysterectomy. 3. 3 cm cystic structure left adnexa likely ovarian in etiology. 4. Indistinctness of the pancreatic head of uncertain etiology but could be related to pancreatitis in the right clinical setting. Correlation with amylase/ lipase levels recommended. Caprini VTE Risk Assessment Caprini VTE Risk Assessment: Moderate/High Risk (score >= 2) Caprini Risk Assessment Model: Point Value = 1 Point Value = 2 Point Value = 3 Point Value = 5 Age 41-60 Minor surgery BMI > 25 kg/m2 Swollen legs Varicose veins or History of unexplained or recurrent spontaneous Oral contraceptives or hormone replacement Sepsis (< 1 month) Serious lung disease, including pneumonia (< 1 month) Abnormal pulmonary function Acute myocardial infarction Congestive heart failure (< 1 month) History of inflammatory bowel disease Medical patient at bed rest Age 61-74 Arthroscopic surgery Major open surgery (> 45 min) Laparoscopic surgery (> 45 min) Malignancy Confined to bed (> 72 hours) Immobilizing plaster cast Central venous access Age >= 75 History of VTE Family history of VTE Factor V Leiden Prothrombin [id number] Lupus anticoagulant Anticardiolipin antibodies Elevated serum homocysteine Heparin-induced thrombocytopenia Other congenital or acquired thrombophilia Stroke (< 1 month) Elective arthroplasty Hip, pelvis, or leg fracture Acute spinal cord injury (< 1 month) Prophylaxis Regimen: Total Risk Factor Score Risk Level Prophylaxis Regimen 0-1 Low Early ambulation 2 Moderate Order ONE of the following: *Sequential Compression Device (SCD) *Heparin 5000 units SQ BID 3-4 Higher Order ONE of the following medications: *Heparin 5000 units SQ TID *Enoxaparin/Lovenox 40 mg SQ daily (WT < 150 kg, CrCl > 30 mL/min) *Enoxaparin/Lovenox 30 mg SQ daily (WT < 150 kg, CrCl > 10-29 mL/min) *Enoxaparin/Lovenox 30 mg SQ BID (WT < 150 kg, CrCl > 30 mL/min) AND/OR *Sequential Compression Device (SCD) 5 or more Highest Order ONE of the following medications: *Heparin 5000 units SQ TID (Preferred with Epidurals) *Enoxaparin/Lovenox 40 mg SQ daily (WT < 150 kg, CrCl > 30 mL/min) *Enoxaparin/Lovenox 30 mg SQ daily (WT < 150 kg, CrCl > 10-29 mL/min) *Enoxaparin/Lovenox 30 mg SQ BID (WT < 150 kg, CrCl > 30 mL/min) AND *Sequential Compression Device (SCD) Assessment and Plan Plan Impression: Frequent syncope secondary to severe aortic stenosis Abnormal UA. Likely with UTI. Fall/vomiting episodes with positional change due to severe decrease cardiac output from aortic stenosis Orthostatic hypotension Acute renal failure secondary to dehydration Macular degeneration Retinal detachment Right eye blindness Severe aortic stenosis History of TIA History of hypertension. However possible she also has orthostatic hypotension from history. 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 She is interested in discussing further with T AVR team and palliative care. Therefore I have consulted both teams at this point. Patient is allergic to multiple antibiotics. She was able to tolerate Macrobid in ER. For now I would continue Macrobid. We will follow urine culture results. Check orthostatics. Reviewed patient's home meds with patient. I would resume aspirin. However hold losartan. We will not give her blood pressure medications unless her BP sitting up is high. Reviewed patient's CT imaging studies. No evidence of acute obstructive uropathy. No renal stones. Question of a pancreatic dimensions. However like patient's pain is more in the flank/back pain. Hydrate patient orally for now. She is reporting history of shortness of breath /cough although she does not have peripheral edema. With her severe aortic stenosis, would be difficult to hydrate her inferior that this could push her into CHF. DVT prophylaxis with Lovenox. H&P: Quality VTE Deep Vein Thrombosis/Pulmonary Embolism Present on Admission: No
[2018-11-04] MEDS: Gabapentin 400 MG Capsule PO SCH ×3 (09:25→17:59)
[2018-11-04] MEDS: Nitrofurantoin Monohydrate-Macrocrystal 100 MG Capsule PO SCH ×2 (09:25→17:59)
--- NOTE | 2018-11-04 10:05 | P.PNWCN ---
Wound Care Nurse Consult Additional information: Patient not seen on H pod, Spoke with RN Rose Marie Magana, per RN patient has erythematous shiny intact skin to buttock area that is associated with incontinence. Recommended RN to apply Calazime skin protectant paste BID to denuded moisture associated skin damage on buttock area.Wound care inpatient is signing off. Please reconsult wound care nurse for open wounds.
--- NOTE | 2018-11-04 12:01 | P.PNIM ---
Subjective Interval history: Reports some chest pressure and chronic shortness of breath and dizziness when she sits up. She has had multiple bouts of syncope in the past. She tells me she had previous visits with Dr. Griffiths and declined aortic stenosis repair and did not follow-up with a repeat echo this summer. She is open to further discussion to determine if she is a TAVR candidate. She has been chronically bedbound due to history of polio and has poor vision due to macular degenerative disease. She is open to further discussion with palliative care to determine short-term and long-term goals. She states that she currently lives with her son. She will need a bedside commode upon discharge. She would like to go home in the morning with continued outpatient follow-up and discussions. Physical Exam Vital signs: Last Vital Signs Temp 98.4 F 11/04/18 09:12 Pulse 80 11/04/18 09:12 Resp 16 11/04/18 09:12 BP 161/72 H 11/04/18 09:12 Pulse Ox 94 L 11/04/18 09:12 Intake & Output 11/02/18 11/03/18 11/04/18 11/05/18 06:59 06:59 06:59 06:59 Intake Total 1240 / 1240 240 / 240 Output Total 300 / 300 Balance 940 / 940 240 / 240 Weight 74.843 kg Narrative: Elderly frail female lying in bed in no acute respiratory distress Cardiovascular regular rate and rhythm with a 2 out of 6 systolic ejection murmur Lungs relatively clear to auscultation bilaterally Abdomen soft nontender positive bowel sounds Extremities no cyanosis or clubbing trace edema Neurological exam she is alert and oriented x4. She can move bilateral upper extremities with a 5 out of 5. There is no significant movement in the right lower extremities, 4 out of 5 motor strength in the left lower extremities Urinary Catheter Management Straight: Cath placed during this visit: yes Urethral indwelling: No Insertion date: 11/03/18 Insertion time: 20:48 Results Labs CBC & Chem 7: 11/04/18 04:29 11/04/18 04:29 Imaging Imaging: Impressions Chest X-Ray 11/03/18 19:17 CONCLUSION: No acute cardiopulmonary disease Head CT 11/03/18 19:17 CONCLUSION: 1. Cerebral atrophy and chronic ischemic small vessel vasculopathy. 2. No acute intracranial abnormality. . Abdomen/Pelvis CT 11/03/18 19:20 CONCLUSION: 1. Diverticulosis without diverticulitis. 2. Hysterectomy. 3. 3 cm cystic structure left adnexa likely ovarian in etiology. 4. Indistinctness of the pancreatic head of uncertain etiology but could be related to pancreatitis in the right clinical setting. Correlation with amylase/ lipase levels recommended. Assessment and Plan Plan 89-year-old white female presents with frequent syncope likely due to severe aortic stenosis with baseline bedbound due to history of polio Frequent syncope suspect secondary to severe aortic stenosisshe has declined open heart aortic valve repair in the past however is open to further discussion to see if she is a TAVR candidate, obtain a 2D echo, she will follow- up with her sporting goods sales manager and cardiothoracic surgery evaluation to determine she is a candidate. Palliative care has been consulted to assist patient and family on short-term long-term goals for quality of life. Continue cardiac monitoring. Orthostatic blood pressure will be obtained to determine if a lower dose of losartan should be started in the morning. Abnormal urinalysissuspect urinary tract infection follow final urine cultures , currently on Macrobid Acute kidney injury per imposed on chronic disease stage III -encourage oral intake, avoid nephrotoxins, creatinine with mild improvement overnight. History of macular degenerate ration with right eye blindness with a history of retinal detachment History of hypertension, currently losartan on hold to evaluate for orthostatic blood pressures. DVT prophylaxischange to heparin due to chronic kidney disease. Progress Note: Quality VTE Deep Vein Thrombosis/Pulmonary Embolism Present on Admission: No
--- NOTE | 2018-11-04 12:16 | ECG ---
Date Performed: 11/03/2018 Time Performed: 19:15:57 PTAGE: 88 years EKG: Sinus rhythm VOLTAGE CRITERIA FOR LVH ABNORMAL ECG Since the PREVIOUS TRACING , no significant change noted PREVIOUS TRACIN03/15/2017 15.51 DOCTOR: Natalie Snyder Interpretating Date/Time 11/04/2018 12:13:59
--- NOTE | 2018-11-04 12:26 | P.CONPAL ---
Consult Service: Palliative Care Requesting Physician: Delmi Maravilla Reason for Consult: a. To assist with evaluation and management of symptoms including: Poor activity tolerance, shortness of breath. b. To assist medical decision maker(s) with: better understanding of current medical conditions; weighing benefits/burdens of medical treatment options; making medical treatment decisions. Primary Care Provider: Mauricio Norton MD History of Present Illness History of Present Illness: Ms. Ellis is an 88-year-old female with a medical history significant for severe aortic stenosis, history of polio with right leg atrophy, multiple lumbar spine surgeries with chronic back pain, hypertension, TIA and macular degeneration. Patient presented to ED on 11/03/18 via EMS for evaluation of near syncopal episode. Patient with reports of worsening weakness and very poor activity tolerance secondary to severe aortic stenosis. Patient with worsening weakness and tiredness for the 2 prior days with decreased appetite. Patient presented with midsternal chest pain and heaviness. ED workup revealing UTI, leukocytosis, and acute on chronic kidney failure with BUN/ creatinine 26/1.65. Chest x-ray negative for acute process. Head CT negative for acute pulmonary process, showing cerebral atrophy and chronic ischemic changes. Patient to be admitted for further monitoring and management. Palliative care has been consulted for further clarifications of goals of care in the setting of severe aortic stenosis, multiple ongoing comorbidities and advanced age. Patient seen in ED, she was resting in bed in no acute distress. Patient alert and oriented x self, place and situation. Reporting feeling better than yesterday. Denies any chest pain, shortness of breath, nausea vomiting or any abdominal discomfort. In this first visit, introduced the role of palliative care and advance illness in regards to symptom management as well as guidance and goals of care and advance care planning. Patient's son-in-law and grandson at bedside. Obtained patient's past medical history, psychosocial history. Reviewed events leading to this hospitalization, clinical course and current medical management. Patient reports that for the past year she has been mainly bed to wheelchair bound secondary to profound symptom burden related to her aortic stenosis. Patient with very poor activity tolerance in the setting of shortness of breath, chest pain and overall debility. Patient reports that she requires assistance with bathing, dressing, toileting and transferring from bed to wheelchair. She is able to feed self. Patient's son Glen residing with patient for the past 8 years and providing care. Patient reports that back in 2017 a tester semiconductor packages recommended a possible surgical repair of severe left ear but she declined given her age. She tells me that she may consider a minimally invasive approach for aortic wall replacement if she is a candidate, however, concern of anesthesia given her multitude of allergies. Patient's goal is to improve her quality of life more than prolong her survival. Reviewed the future role of hospice should she declines a aortic valve replacement or she is deemed not a surgical candidate, patient receptive to this. Reviewed in depth hospice philosophy and benefits. Reviewed risks, benefits and limitations of CPR, intubation mechanical ventilation. Patient verbalized wishing a natural , electing DNR DNI. She further verbalized not ever wishing for a feeding tube or a tracheostomy. Patient was encouraged to discuss goals of care with her family, patient receptive to palliative care follow-up tomorrow. Function/Cognitive Trajectory: Patient bed to wheelchair bound secondary to profound symptom burden related to severe aortic stenosis. Patient unable to bear weight, requiring x1 person assist for transfers. Patient requiring assistance with all ADLs besides feedings. Using bedside commode. No cognitive deficit reported. Review of Systems Constitutional: Reports fatigue, Reports headache(s), Denies chills, Denies fever(s), Denies night sweats Eyes: Reports blurry vision, Reports dry eyes, Reports loss of vision Ears, Nose, Mouth, and Throat: Denies abnormal hearing, Denies difficulty swallowing, Denies ear pain, Denies mouth pain, Denies nasal congestion, Denies nasal discharge Cardiovascular: Reports chest pain with activity, Reports shortness of breath with activity, Denies chest pain Respiratory: Reports cough, Denies chest congestion, Denies shortness of breath with activity Gastrointestinal: Denies abdominal pain, Denies bright, red blood in stools, Denies incontinent of stools Genitourinary: Denies blood in urine Musculoskeletal: Reports back pain, Reports decreased muscle mass, Reports muscle weakness Skin/Breast: Denies lesions Neurologic: Reports dizziness, Denies abnormal hearing Psychiatric: Denies anxiety, Denies confusion Endocrine: Denies cold intolerance PMF - History History Provided By: Patient, Medical Record - Medical History Medical History: Medical History (Last Updated 11/04/18 @ 12:22 by Arely Beck APRN) Chronic back pain H/O: hysterectomy 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 Hypertension Macular degeneration Osteoporosis Peripheral neuropathy Retinal detachment Severe aortic stenosis Shingles TIA (transient ischemic attack) UTI (urinary tract infection) - Surgical History Surgical History: Surgical History (Last Reviewed 11/03/18 @ 21:18 by BRADLEY Kan) H/O lumpectomy Hx of appendectomy - Family History Family History: Family History (Last Updated 11/04/18 @ 12:18 by Arely Beck APRN) Father Diabetes mellitus Tuberculosis Mother Breast cancer - Social History I have reviewed the patient's Social History: Yes - Tobacco History Second Hand Smoke Exposure: No Tobacco Use In Past 30 Days: No Smoking Status: Never smoker - Alcohol History How Often Do You Have a Drink Containing Alcohol: Never - Substance Use History Substance History: No History of Abuse - Travel History Recent Travel in the [facility] Within the Last 8 Weeks: No Recent Travel Out of the Country Within the Last 8 Weeks: No - Immunization History Tetanus Immunization: <5 Years Medications and Allergies Active Medications: Active Medications Aspirin (Ecotrin) 81 mg PO DAILY [facility] Last Admin: 11/04/18 09:25 Dose: 81 mg Enoxaparin Sodium (Lovenox Inj) 40 mg SQ Q24H [facility] Last Admin: 11/03/18 22:44 Dose: 40 mg Gabapentin (Neurontin) 400 mg PO TID [facility] Last Admin: 11/04/18 09:25 Dose: 400 mg Losartan Potassium (Cozaar) 25 mg PO DAILY [facility] Nitrofurantoin Macrocrystals (Macrobid) 100 mg PO BIDPC [facility] Last Admin: 11/04/18 09:25 Dose: 100 mg Sennosides (Senokot) 17.2 mg PO Q12H PRN PRN Reason: Moderate Constipation Sodium Chloride (Ns Flush) 2 ml IV.FLUSH PRN PRN PRN Reason: FLUSH AFTER USING IV ACCESS Sodium Chloride (Ns Flush) 2 ml IV.FLUSH BID [facility] Last Admin: 11/04/18 09:26 Dose: 2 ml Sodium Chloride (Ns Flush) 2 ml IV.FLUSH PRN PRN PRN Reason: FLUSH AFTER USING IV ACCESS Allergies Allergy/AdvReac Type Severity Reaction Status Date / Time morphine Allergy Severe Anaphylaxis Unverified 06/17/17 02:28 ceftriaxone Allergy Intermediate Flushing, Unverified 06/17/17 02:28 Hypotensive codeine Allergy Mild RXN= Unverified 06/17/17 02:28 ANAPHYLAXIS, THROAT CLOSURE iodine Allergy Mild Unverified 06/17/17 02:28 penicillin G Allergy Mild Unverified 06/17/17 02:28 potassium iodide Allergy Mild Unverified 06/17/17 02:28 povidone-iodine Allergy Mild Unverified 06/17/17 02:28 sodium iodide Allergy Mild Unverified 06/17/17 02:28 sodium iodide Allergy Mild Unverified 06/17/17 02:28 Sulfa (Sulfonamide Allergy Mild Unverified 06/17/17 02:28 Antibiotics) levofloxacin AdvReac Severe tendonitis Unverified 06/17/17 02:28 Home Medications Medication Instructions Recorded Confirmed Type aspirin [Aspir-81] 81 mg PO DAILY 11/03/18 11/03/18 History gabapentin 400 mg PO TID 11/03/18 11/03/18 History losartan 50 mg PO DAILY 11/03/18 11/03/18 History Advance Directives Living Will: Yes Healthcare Surrogate: Yes Physical Exam Vital Signs: Vital Signs - 24 hr 11/03/18 19:13 11/03/18 19:17 11/03/18 22:10 Temperature 97.6 F Pulse Rate 80 76 90 Respiratory Rate 18 20 20 Blood Pressure 167/66 H 154/67 H 165/70 H Pulse Oximetry 96 98 98 11/03/18 23:14 11/04/18 04:00 11/04/18 09:12 Temperature 98.2 F 97.9 F 98.4 F Pulse Rate 86 82 80 Respiratory Rate 20 16 16 Blood Pressure 168/72 H 182/78 H 161/72 H Pulse Oximetry 98 97 94 L I&O: Intake & Output 11/02/18 11/03/18 11/04/18 11/05/18 06:59 06:59 06:59 06:59 Intake Total 1240 / 1240 240 / 240 Output Total 300 / 300 Balance 940 / 940 240 / 240 Weight 74.843 kg Physical Exam: CONSTITUTIONAL/GENERAL: This is an adequately nourished elderly patient, in no apparent distress. TUBES/LINES/DRAINS: PIV. SKIN: No jaundice. No wounds seen anteriorly. Skin temperature appropriate. Not diaphoretic. Abrasion to left cheek. Generalized dry skin with erythematous patches to face. HEAD: Atraumatic. Normocephalic. EYES: Extraocular motions intact. No scleral icterus. No injection or drainage. ENT: Hearing grossly normal. Nose without bleeding or purulent drainage. Moist oral mucosa NECK: Trachea midline. Supple, nontender. CARDIOVASCULAR: Regular rate and rhythm. Murmur. Peripheral pulses symmetric. RESPIRATORY/CHEST: Symmetric, unlabored respirations. Clear to auscultation. Breath sounds equal bilaterally. No wheezes, rales, or rhonchi. GASTROINTESTINAL: Abdomen soft, non-tender, nondistended. Bowel sounds present. GENITOURINARY: Without palpable bladder distension. MUSCULOSKELETAL: Extremities without clubbing, cyanosis, or edema. No mottling or clubbing. Atrophy to right leg secondary to polio. LYMPHATICS: No palpable cervical or supraclavicular adenopathy. NEUROLOGICAL: Awake and alert. Motor and sensory grossly within normal limits. Follows commands. Cognitively sharp. Moves all extremities. PSYCHIATRIC: Calm and cooperative. Diagnostic Tests Laboratory: Laboratory Results - last 72 hr 11/03/18 11/03/18 11/03/18 19:27 19:27 19:27 WBC 11.3 H RBC 4.57 Hgb 13.1 Hct 39.5 MCV 86.5 MCH 28.7 MCHC 33.2 RDW 13.1 Plt Count 262 MPV 7.5 Neut % (Auto) 76.0 H Lymph % (Auto) 12.6 [place] % (Auto) 8.3 H Eos % (Auto) 2.5 Baso % (Auto) 0.6 Neut # (Auto) 8.6 H Lymph # (Auto) 1.4 [place] # (Auto) 0.9 Eos # (Auto) 0.3 Baso # (Auto) 0.1 WBC Differential . Differential Comment Auto diff final PT 10.1 INR 1.0 Sodium 140 Potassium 4.1 Chloride 107 Carbon Dioxide 26.2 Anion Gap 7 BUN 26 H Creatinine 1.65 H Estimated GFR 29 L Random Glucose 118 H Lactic Acid Calcium 8.3 L Magnesium 2.0 Total Bilirubin 0.3 AST 16 ALT 12 Alkaline Phosphatase 67 Total Creatine Kinase 26 Troponin I Less than 0.02 L B-Natriuretic Peptide Total Protein 6.9 Albumin 3.0 L Lipase 129 Urine Color Urine Clarity Urine pH Ur Specific Lerna Urine Protein Urine Glucose (UA) Urine Ketones Urine Occult Blood Urine Nitrate Urine Bilirubin Urine Urobilinogen Ur Leukocyte Esterase Urine RBC Urine WBC Ur Squamous Epith Cells Amorphous Sediment Urine Bacteria Urine Mucus Micro UA Comment Ur Microscopic Review Urine Culture Comments 11/03/18 11/03/18 11/03/18 19:27 19:27 19:27 WBC RBC Hgb Hct MCV MCH MCHC RDW Plt Count MPV Neut % (Auto) Lymph % (Auto) [place] % (Auto) Eos % (Auto) Baso % (Auto) Neut # (Auto) Lymph # (Auto) [place] # (Auto) Eos # (Auto) Baso # (Auto) WBC Differential Differential Comment PT INR Sodium Potassium Chloride Carbon Dioxide Anion Gap BUN Creatinine Estimated GFR Random Glucose Lactic Acid 1.2 Calcium Magnesium Total Bilirubin AST ALT Alkaline Phosphatase Total Creatine Kinase Troponin I B-Natriuretic Peptide 21 Total Protein Albumin Lipase Cancelled Urine Color Urine Clarity Urine pH Ur Specific [place]erna Urine Protein Urine Glucose (UA) Urine Ketones Urine Occult Blood Urine Nitrate Urine Bilirubin Urine Urobilinogen Ur Leukocyte Esterase Urine RBC Urine WBC Ur Squamous Epith Cells Amorphous Sediment Urine Bacteria Urine Mucus Micro UA Comment Ur Microscopic Review Urine Culture Comments 11/03/18 11/04/18 11/04/18 20:45 04:29 04:29 WBC 9.6 RBC 4.25 Hgb 12.4 Hct 37.0 MCV 87.1 MCH 29.2 MCHC 33.6 RDW 12.8 Plt Count 246 MPV 7.5 Neut % (Auto) 73.2 H Lymph % (Auto) 14.3 [place] % (Auto) 10.7 H Eos % (Auto) 1.5 Baso % (Auto) 0.3 Neut # (Auto) 7.0 Lymph # (Auto) 1.4 [place] # (Auto) 1.0 H Eos # (Auto) 0.1 Baso # (Auto) 0.0 WBC Differential . Differential Comment Auto diff final PT INR Sodium 140 Potassium 4.3 Chloride 107 Carbon Dioxide 23.4 Anion Gap 10 BUN 25 H Creatinine 1.63 H Estimated GFR 30 L Random Glucose 98 Lactic Acid Calcium 8.2 L Magnesium Total Bilirubin AST ALT Alkaline Phosphatase Total Creatine Kinase Troponin I B-Natriuretic Peptide Total Protein Albumin Lipase Urine Color Yellow Urine Clarity Hazy H Urine pH 6.0 Ur Specific [place] 1.010 Urine Protein Negative Urine Glucose (UA) Negative Urine Ketones Trace H Urine Occult Blood Small H Urine Nitrate Positive H Urine Bilirubin Negative Urine Urobilinogen Less than 2 Ur Leukocyte Esterase Trace H Urine RBC 1 Urine WBC 5 Ur Squamous Epith Cells 4 Amorphous Sediment Rare H Urine Bacteria Many H Urine Mucus Few H Micro UA Comment Cath-culture ind Ur Microscopic Review Not Reportable Urine Culture Comments Cath-cult indicated Result Diagrams: 11/04/18 04:29 11/04/18 04:29 Patient/Family Conference Present at Family Conference: Patient, son-in-law and grandson. Family Conference Time: 38 Family Conference Location: Bedside Issues Discussed: * Palliative care role, purpose, approach * Additional medical, psychosocial, and spiritual history * Patients general health, functional status, and cognitive changes in the months leading up to the current hospitalization * Patient/family understanding of the current medical problems * Patient/family understanding of prognosis * Patients goals of care as best understood from advance directives and/or conversations and/or values * Current medical treatment options and benefits/burdens of those options * Questions answered to the best of my ability * Palliative care contact information provided * Hospice philosophy and benefits * Risks, benefits and limitations of CPR, intubation and mechanical ventilation Assessment and Plan - Disease Oriented Problem List (1) Severe aortic stenosis (2) Acute UTI (3) Physical deconditioning Pertinent Non-Medical Issues: Psychosocial: Patient originally from [facility]. She is , 14 years ago. Patient has 4 children. 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 No service. Spiritual: Yarsanism sebastian. Legal: Advance directives reported as completed. Pending copy. Ethical issues impacting care: No ethical issues identified. Important Contacts: Patient's son Glen Son Karel Daughter Steff Power Daughter Carmen Prognosis: Ms. Ellis is an 88-year-old female with a medical history significant for severe aortic stenosis, history of polio with right leg atrophy, multiple lumbar spine surgeries with chronic back pain, hypertension, TIA and macular degeneration. Patient presented to ED on 11/03/18 via EMS for evaluation of near syncopal episode. Patient with reports of worsening weakness and very poor activity tolerance secondary to severe aortic stenosis. Patient bed to wheelchair bound for the past year at baseline, profound physical deconditioning. Patient at high risk for complications, continued decline and . Patient hospice appropriate in the setting of severe aortic stenosis should she elects comfort-directed care. Code Status: No Code DNR Plan: * CODE STATUS: DNR/DNI. * HEALTHCARE DECISION-MAKING: Patient participating medical decision making. Patient with a good understanding of her clinical condition, appears to retain the ability to weight benefits versus burdens of treatment options. Advance directives reported as completed, daughter Steff Power listed as healthcare surrogate decision maker. Pending copy. * GOALS OF CARE: Patient currently considering minimally invasive aortic valve replacement, pending cardiothoracic consultation. Patient reports that she will consider intervention if this would provide her with improved quality of life by relieving her profound symptoms. Patient reports that even if she is a surgical candidate, she has concerns regarding anesthesia/sedation given her multitude of allergies. Hospice philosophy and benefits introduced. Reviewed the future role of hospice services should patient is determined not a surgical candidate, or in the setting of increased symptom burden or worsening debility. Patient was encouraged to continue goals of care conversation with her family. * SYMPTOMS: = Poor activity tolerance secondary to shortness of breath, chest pain and dizziness in the setting of severe aortic stenosis. Pending TVAR evaluation. = Pain: To bilateral lower extremities secondary to neuropathy. Currently on gabapentin 400 mg 3 times daily. * Palliative care contact information has been provided to patient and family. * Palliative care will continue to follow-up for further clarifications of goals of care as patient's clinical course continues to evolve. Time Spent Total Floor Time (mins): 65 (Total time to include review of summarization of records to include prior hospitalizations and PCP notes, physical exam, goals of care conversation with patient and family.) >50% Time in Counseling or Coordination of Care: Yes (Total visit time = 65 minutes; > 50% spent counseling/coordinating care) Appreciation Thank you for the opportunity to participate in the care of Laura Uniquesophie Ellis. Attestation Attestation: To help prompt me to consider important information that might be impacting today's encounter and assessment, information from prior notes written by myself or my colleagues may have been "brought forward" into today's note. My signature on this note, however, is an attestation that I personally performed the exam, history, and/or decision-making noted today, and, unless otherwise indicated, the interactions with patient, family, and staff as well as the review of records all occurred today. I also attest that the listed assessment and stated plan reflect my best clinical judgment today based on the combination of historical information, prior notes, and today's exam/ interactions. When time spent is documented, it refers only to time spent today by the signer, or if indicated, combined time spent today by collaborating physician/nurse practitioner.
[2018-11-04] MEDS ORDERED: Acetaminophen 325 MG Tablet PO PRN (18:21)
[2018-11-04] MEDS: Heparin - SQ 10,000 UNITS/ML Vial SQ SCH (22:29)
--- NOTE | 2018-11-05 08:26 | ECHRPT ---
Indication: SYNCOPE CONCLUSIONS Normal left ventricular size. Wall thickness is normal. The left ventricular systolic function is normal with an estimated ejection fraction in the range of 60-65%. [id number] mitral valve regurgitation. Aortic valve sclerosis is present. Mild aortic valve regurgitation. Aortic valve mean gradient is 12 mmHg. Rhueixue-sn-odboja aortic stenosis dimensionless index 0.36 stroke volume index 26.1 There is trace tricuspid valve regurgitation. The estimated pulmonary arterial pressure is 57.9 mmHg. BP: / HR: Rhythm: Sinus MEASUREMENTS (Male / Female) Normal Values Technical Quality:Fair 2D ECHO LV Diastolic Diameter PLAX 4.6 cm 4.2 - 5.9 / 3.9 - 5.3 cm LV Systolic Diameter PLAX 3.3 cm IVS Diastolic Thickness 0.9 cm 0.6 - 1.0 / 0.6 - 0.9 cm LVPW Diastolic Thickness 0.9 cm 0.6 - 1.0 / 0.6 - 0.9 cm LV Relative Wall Thickness 0.4 RV Internal Dim ED PLAX 2.8 cm LVOT Diameter 1.9 cm Aortic Root Diameter 3.1 cm LA Systolic Diameter LX 2.6 cm 3.0 - 4.0 / 2.7 - 3.8 cm M-MODE AV Cusp Separation MM 1.3 cm DOPPLER AV Peak Velocity 236.0 cm/s AV Peak Gradient 22.3 mmHg AV Mean Gradient 12.0 mmHg AV Velocity Time Integral 45.4 cm LVOT Peak Velocity 69.2 cm/s LVOT Peak Gradient 1.9 mmHg LVOT Velocity Time Integral 16.7 cm AV Area Cont Eq vti 1.0 cm AV Area Cont Eq pk 0.8 cm Mitral E Point Velocity 70.6 cm/s Mitral A Point Velocity 109.0 cm/s Mitral E to A Ratio 0.6 LV E' Lateral Velocity 6.6 cm/s Mitral E to LV E' Lateral Ratio 10.6 LV E' Septal Velocity 4.4 cm/s Mitral E to LV E' Septal Ratio 16.1 TR Peak Velocity 346.0 cm/s TR Peak Gradient 47.9 mmHg Right Atrial Pressure 10.0 mmHg Pulmonary Artery Systolic Pressu 57.9 mmHg Right Ventricular Systolic Press 57.9 mmHg PV Peak Velocity 51.9 cm/s PV Peak Gradient 1.1 mmHg FINDINGS LEFT VENTRICLE Normal left ventricular size. Wall thickness is normal. The left ventricular systolic function is normal with an estimated ejection fraction in the range of 60-65%. RIGHT VENTRICLE Normal right ventricular size and systolic function. LEFT ATRIUM The left atrial size is normal. RIGHT ATRIUM The right atrial size is normal. ATRIAL SEPTUM The interatrial septum not well visualized. AORTA The aortic root and proximal ascending aorta are normal in size on limited imaging. MITRAL VALVE [id number] mitral valve regurgitation. AORTIC VALVE Aortic valve sclerosis is present. Mild aortic valve regurgitation. Aortic valve mean gradient is 12 mmHg. Vacydytb-lj-[id number] aortic stenosis dimensionless index 0.36 stroke volume index 26.1 TRICUSPID VALVE There is trace tricuspid valve regurgitation. The estimated pulmonary arterial pressure is 57.9 mmHg. PULMONARY VALVE No pulmonary valve regurgitation or stenosis. VESSELS The inferior vena cava was not well visualized. PERICARDIUM No pericardial effusion. Trent Ortiz MD, FACC (Electronically Signed) Final Date:05 November 2018 08:25 Amended: 05 November 2018 09:24
--- NOTE | 2018-11-05 10:06 | P.FRAIL ---
Frailty Index Date: November 05, 2018 Height: 170.18 cm Weight: 74.8 kg BMI: 25.8 Assessment Performed: Inpatient - Albumin Normal Albumin range: 3.5-5.0 g/dL Albumin 3.0 g/dL (3.4-5.0) L 11/03/18 19:27 Pass/Fail: Fail - [place] Activities of Daily Living Bathing (bathes self/help in single area): [place] Dressing (gets/puts clothes on self): [place] Toileting (goes without help): [place] Transferring (unassisted or mechanical aides): [place] Continence (complete self-control): [place] Feeding (self, prep by another allowed): [place] Farris Total ADL Score: 5 - Time Study Observer Strength 3 BMI Cutoff for Time Study Observer Strength (Kg) <= 23 <= 17 23.1 - 26 <= 17.3 26.1 - 29 <= 18 Time Study Observer Strength - Grasp 1: 12 Time Study Observer Strength - Grasp 2: 12 Time Study Observer Strength - Grasp 3: 13 Time Study Observer Strength - Average: 12.3 Pass/Fail: Fail - 15-Foot Walk 3 Height 15-Foot Walk Cutoff Time <= 159 cm >= 7 seconds > 159 cm >= 6 seconds 15-Foot Walk (seconds): 0 (unable to ambulate, pt states she is mostly bedbound/ wheelchair bound) Pass/Fail: Fail - Total Frailty Total Frailty (out of 4): 3
--- NOTE | 2018-11-05 11:19 | P.PNIM ---
Subjective Interval history: Patient point of mild headache. No further passing out spells. Had a long conversation with the TAVR coordinator and decide at this point she does not want to pursue any further testing to determine if she is a candidate. She would like to go home today. No complaint of chest pains or palpitations. Physical Exam Vital signs: Last Vital Signs Temp 97.7 F 11/05/18 08:00 Pulse 101 H 11/05/18 08:00 Resp 16 11/05/18 08:00 BP 161/71 H 11/05/18 08:00 Pulse Ox 91 L 11/05/18 08:00 Intake & Output 11/03/18 11/04/18 11/05/18 11/06/18 06:59 06:59 06:59 06:59 Intake Total 1240 / 1240 480 / 480 Output Total 300 / 300 1100 / 1100 Balance 940 / 940 -620 / -620 Weight 74.843 kg 74.8 kg Narrative: Elderly frail female lying in bed in no acute respiratory distress Cardiovascular regular rate and rhythm with a 2 out of 6 systolic ejection murmur Lungs relatively clear to auscultation bilaterally Abdomen soft nontender positive bowel sounds Extremities no cyanosis or clubbing trace edema Neurological exam she is alert and oriented x4. She can move bilateral upper extremities with a 5 out of 5. There is no significant movement in the right lower extremities, 4 out of 5 motor strength in the left lower extremities Urinary Catheter Management Straight: Cath placed during this visit: yes Urethral indwelling: No Insertion date: 11/03/18 Insertion time: 20:48 Results Labs CBC & Chem 7: 11/04/18 04:29 11/04/18 04:29 Labs: Microbiology 11/03/18 20:45 Catheterized Urine Urine Culture - Preliminary gram negative rods Streptococcus species Assessment and Plan Plan 89-year-old white female presents with frequent syncope likely due to severe aortic stenosis with baseline bedbound due to history of polio Frequent syncope suspect secondary to severe aortic stenosisshe has declined open heart aortic valve repair in the past however is open to further discussion to see if she is a TAVR candidate, 2D echo results discussed with Dr. Ortiz with moderate to severe aortic stenosis aortic sclerosis, normal ejection fraction She has met with the TAVR coordinator at this time will not pursue further testing. She was given Dr. Ortiz's follow-up appointment should she reconsider in the future. Appreciate palliative care service to assist patient and family on short-term long-term goals for quality of life. No change in orthostatic blood pressure, restart Cozaar. Abnormal urinalysissuspect urinary tract infection follow final urine cultures , preliminary results with gram-negative pepe and Streptococcus species, currently on Macrobid Follow-up with primary care physician with final cultures. Acute kidney injury per imposed on chronic disease stage III -encourage oral intake, avoid nephrotoxins, creatinine with mild improvement overnight. 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 Discharge patient to home Condition on discharge: Improved Regular Diet as tolerated Ad Gia activity Rx written: Macrobid SR 100 mg p.o. twice daily for 6 more days Follow-up with primary care physician for final urine cultures. Dr. Ortiz's name and information given to the patient should she reconsider further evaluation for [facility] Progress Note: Quality VTE Deep Vein Thrombosis/Pulmonary Embolism Present on Admission: No
[2018-11-05] MEDS: Gabapentin 400 MG Capsule PO SCH (11:29)
[2018-11-05] MEDS: Heparin - SQ 10,000 UNITS/ML Vial SQ SCH (11:34)
[2018-11-05 12:42] VITALS: RESP 18; TEMP 97.3; O2SAT 92
--- NOTE | 2018-11-05 13:53 | P.PNPAL ---
Palliative care supportive visit with Ms. Ellis. Son, Gustabo, at bedside during beginning of visit and patient's daughter present for closure of visit. Ms. Ellis verbalizes she is ready to go home today. Confirms continued desire of NO CODE status. Community DNR completed with patient. Copies provided to patient and family for discharge. Copy also faxed to HIM to be scanned into EMR. Reviewed hospice services and provided information should patient decide to engage hospice after discharge. Family verbalizes while they do not like patient's wishes for DNR, they are in support of their mother's wishes. Support provided through active listening. Daughter verbalizes they will be engaging [employer] Whe[employer] for their mother. Palliative care contact information provided. Will remain available throughout hospitalization.
[2018-11-05 14:18] VITALS: BP 152/60; PULSE 90
== END 2018-11-05 15:43 | disposition home or self-care (01) ==
LOC: NEPC 19:00 → NEDA 19:00 → NEPHCDU 11-04 01:17
PROVIDERS: ADMIT Family Medicine; ATTEND Family Medicine
DX: I95.1 Orthostatic hypotension; Z86.73 Personal history of transient ischemic attack (TIA), and cerebral infarction without residual deficits; Z87.442 Personal history of urinary calculi; Z80.3 Family history of malignant neoplasm of breast; Z88.5 Allergy status to narcotic agent; Z90.49 Acquired absence of other specified parts of digestive tract; N17.9 Acute kidney failure, unspecified; I13.0 Hypertensive heart and chronic kidney disease with heart failure and stage 1 through stage 4 chronic kidney disease, or unspecified chronic kidney disease; Z86.12 Personal history of poliomyelitis; R32 Unspecified urinary incontinence; B96.89 Other specified bacterial agents as the cause of diseases classified elsewhere; N18.3 Chronic kidney disease, stage 3 (moderate); Z91.041 Radiographic dye allergy status; Z99.3 Dependence on wheelchair; K57.90 Diverticulosis of intestine, part unspecified, without perforation or abscess without bleeding; I35.0 Nonrheumatic aortic (valve) stenosis; Z74.01 Bed confinement status; Z90.710 Acquired absence of both cervix and uterus; E66.3 Overweight; I50.9 Heart failure, unspecified; Z86.19 Personal history of other infectious and parasitic diseases; Z88.2 Allergy status to sulfonamides; H54.61 Unqualified visual loss, right eye, normal vision left eye; E86.0 Dehydration; N39.0 Urinary tract infection, site not specified
CPT/HCPCS: 70450; 71010; 71045; 74176; 80048; 80053; 81001; 82550; 83520; 83605; 83690; 83735; 83880; 84484; 85025; 85610; 87077; 87086; 87186; 90761; 90774; 90784; 93005; 93306; 96361; 96374; 97163; 99285; C8952; G0378; G8987; G8988; J1644; J1650; J2405; J7030